=== PATIENT | female | born 1965 | race Caucasian/White ===

== ENCOUNTER 2016-10-01 10:14 | Emergency (ER) | payer OTHER ==
[2016-10-01 10:19] VITALS: TEMP 36.6; Ht 162.6 cm
[2016-10-01] MEDS ORDERED: ACETAMINOPHEN 500 MG TAB PO STA (10:43)
--- NOTE | 2016-10-01 11:25 | DIAGNOSTIC IMAGING REPORT ---
RIGHT KNEE 1 OR 2 VIEWS ROUTINE CLINICAL HISTORY: Right knee pain. Trauma. COMPARISON: None. DISCUSSION: There are advanced osteoarthritic changes within the right knee. There are dorsal patellar spurs. There are medial and lateral joint compartment spurs. No acute fractures are visualized. There is a probable trace joint effusion. IMPRESSION: Advanced osteoarthritic change. No acute fractures. Electronically signed by: Arthur Mancini M.D. 10/01/2016 11:24 AM Dictated Date/Time: 10/01/2016 11:23 AM
[2016-10-01] MEDS ORDERED: METF-384 PO (11:26)
[2016-10-01] MEDS ORDERED: LYR50 PO (11:26)
[2016-10-01] MEDS ORDERED: METO200T29 PO (11:26)
[2016-10-01] MEDS ORDERED: ALEN70TA4 PO (11:26)
[2016-10-01] MEDS ORDERED: CALC600T9 PO (11:26)
[2016-10-01] MEDS ORDERED: DAPA1TAB2 PO (11:26)
[2016-10-01] MEDS ORDERED: HYDR12.56 PO (11:26)
[2016-10-01] MEDS ORDERED: ENAL10TA88 PO (11:26)
--- NOTE | 2016-10-01 11:26 | DIAGNOSTIC IMAGING REPORT ---
RIGHT SHOULDER MIN 2 VIEWS ROUTINE CLINICAL HISTORY: Right shoulder pain status post trauma COMPARISON: None. DISCUSSION: No acute fractures are visualized. There are no dislocations. There are peritendinous calcifications consistent with calcific tendinitis. IMPRESSION: 1. No acute fractures or dislocations 2. Calcific tendinitis Electronically signed by: Arthur Mancini M.D. 10/01/2016 11:24 AM Dictated Date/Time: 10/01/2016 11:24 AM
[2016-10-01] MEDS ORDERED: TRAMADOL HCL 50 MG HOME PACK PO ONE (12:15)
[2016-10-01] MEDS ORDERED: TRAM-10 PO (12:15)
[2016-10-01 12:25] VITALS: BP 118/77; PULSE 68; O2SAT 96
--- NOTE | 2016-10-01 16:30 | EMERGENCY ROOM VISIT NOTE ---
History Report prepared by Eve: Meliza Mejia Under the Supervision of: Dr. Alcides Hernandez M.D. First contact with patient: 10:36 Chief Complaint: FALL Stated Complaint: FELL-HIT LT SIDE OF HEAD, RT SHOULDER/KNEE PAIN History of Present Illness The patient is a 51 year old female who presents to the Emergency Room for evaluation after suffering a fall just prior to arrival. Currently she is experiencing discomfort to a "lump" on left side of her head, as well as her right shoulder and right knee, and she rates her discomfort as a 9/10. At the time of onset, the patient was walking down a wheelchair ramp when she slipped on ice and fell backwards, landing on her back with her right leg bent underneath of her. During the fall, the patient hit the left side of her head and now has a painful "lump", but she denies losing consciousness or having a headache. She also has pain to her right shoulder and right knee, which worsens with attempts of movement. The patient denies injuring her neck, back, pelvis, or right sided extremities. Patient does note that she previously suffered an injury to her right shoulder in 2014, but she did not follow up with orthopedics at that time. Patient is not currently on any blood thinning medications. She has a history of diabetes and hypertension but has not yet taken her normal medications this morning. Source of History: patient Onset: travel pta Position: head, shoulder (right), knee (right) Symptom Intensity: 9/10 Timing: other (current) Modifying Factors (Worsening): movement Associated Symptoms: No LOC, No back pain, No neck pain Note: Patient denies injury to right sided extremities. Review of Systems See HPI for pertinent positives & negatives. A total of 10 systems reviewed and were otherwise negative. Past Medical & Surgical Medical Problems: (1) Diabetes (2) HTN (hypertension) Social History Smoking Status: Former Smoker Marital Status: single Occupation Status: employed Current/Historical Medications Scheduled Alendronate Sodium (Fosamax), 70 MG PO WK Calcium Carbonate-Vitamin D (Calcium + D), 1 TAB PO BID Dapagliflozin Propanediol (Farxiga), 10 MG PO DAILY Enalapril (Vasotec), 20 MG PO DAILY Hydrochlorothiazide (Hctz), 12.5 MG PO DAILY Metformin Hcl (Glucophage), 1,000 MG PO BID Metoprolol Succinate (Toprol Xl), 200 MG PO DAILY Pregabalin (Lyrica), 50 MG PO TID Scheduled PRN Tramadol (Ultram), 1-2 TABS PO Q6 PRN for Pain Allergies Coded Allergies: Amoxicillin (Verified Allergy, Intermediate, rash, 10/01/16) Levofloxacin (Verified Allergy, Intermediate, rash, 10/01/16) [place] (Unverified Allergy, Unknown, anaphylaxis, 10/01/16) Physical Exam Vital Signs Date Time Temp Pulse Resp B/P Pulse Ox O2 Delivery O2 Flow Rate FiO2 10/01/16 12:25 68 17 118/77 96 Room Air 10/01/16 10:19 36.6 68 17 134/77 95 Room Air Physical Exam GENERAL: Patient is a healthy-appearing well-nourished HEAD: Quarter sized contusion to the back of her head. EYES: Ocular movements intact pupils equal and react to light OROPHARYNX mucous membranes are moist no exudates present no erythema or edema present NECK: Supple no nuchal rigidity CHEST: Good equal expansion LUNGS: Clear and equal to auscultation CARDIAC: Normal S1 and S2 ABDOMEN: Soft nontender no guarding BACK: No CVA tenderness EXTREMITIES: Small knee effusion to the right knee. NVI to the right foot and right wrist. Good ROM of the right wrist and right elbow. Good ROM of the right hip and right ankle. NEURO: Patient is following commands is answering questions appropriately. Alert and oriented x3 Cranial Nerves 2-12 grossly intact Medical Decision & Procedures ER Provider Diagnostic Interpretation: X-ray results as stated below per interpretation by me and the radiologist: RIGHT SHOULDER MIN 2 VIEWS ROUTINE CLINICAL HISTORY: Right shoulder pain status post trauma COMPARISON: None. DISCUSSION: No acute fractures are visualized. There are no dislocations. There are peritendinous calcifications consistent with calcific tendinitis. IMPRESSION: 1. No acute fractures or dislocations 2. Calcific tendinitis Electronically signed by: Arthur Mancini M.D. 10/01/2016 11:24 AM Dictated Date/Time: 10/01/2016 11:24 AM RIGHT KNEE 1 OR 2 VIEWS ROUTINE CLINICAL HISTORY: Right knee pain. Trauma. COMPARISON: None. DISCUSSION: There are advanced osteoarthritic changes within the right knee. There are dorsal patellar spurs. There are medial and lateral joint compartment spurs. No acute fractures are visualized. There is a probable trace joint effusion. IMPRESSION: Advanced osteoarthritic change. No acute fractures. Electronically signed by: Arthur Mancini M.D. 10/01/2016 11:24 AM Dictated Date/Time: 10/01/2016 11:23 AM Medications Administered Medications (Trade) Dose Ordered Sig/Helen Route Start Time Stop Time Status Last Admin Dose Admin Acetaminophen (Tylenol Tab) 1,000 mg NOW STAT PO 10/01/16 10:43 10/01/16 10:45 DC 10/01/16 10:57 1,000 MG Tramadol HCl (Ultram Home Pack) 1 homepack UD ONCE PO 10/01/16 12:15 10/01/16 12:16 DC 10/01/16 12:22 1 HOMEPACK ED Course 1038: Past medical records reviewed. The patient was evaluated in room C3. A complete history and physical examination was performed. 1043: Tylenol 1,000 mg PO was ordered. 1200: Upon reevaluation, the patient was doing well and appeared to be resting more comfortably. I updated her on the results of her radiology reports. She will be given crutches and instructed on how to use them. 1215: Additional discharge instructions were discussed with the patient at this time. Tramadol HCl 1 homepack PO was ordered to control pain at home. She will follow up with orthopedics She verbalized her understanding and agreement with the treatment plan, and she is now ready for disposition. Medical Decision Differential diagnosis: Etiologies such as fracture, dislocation, neurovascular compromise, compartment syndrome, soft tissue injury, as well as others were entertained. This is a 51-year-old female that presents emergency department after a fall at home. The patient is complaining of right shoulder pain as well as right knee pain. Using shared medical decision making and fact that the patient is not having a headache noted she was consciousness and has all 12 cranial nerves intact relayed the decision that the patient can forego a CAT scan of her head. She was sent for x-rays of her knee as well as her shoulder. These did not show any acute fracture dislocation. The patient was given Tylenol in the emergency department. The patient initially refused pain medication however the time of discharge she was requesting pain meds so she was given Ultram. The patient was placed in a knee mobilizer pending with a follow-up and was placed on crutches. Patient and family were in agreement with the treatment plan. Impression Primary Impression: Right knee pain Additional Impressions: Shoulder pain, right Fall Scribe Attestation See HPI for pertinent positives & negatives. A total of 10 systems reviewed and were otherwise negative. Departure Information Dispostion Home / Self-Care Prescriptions Tramadol (Ultram) 50 Mg Tab 1-2 TABS PO Q6 Y for Pain, #14 TAB Prov: Alcides Hernandez MD 10/01/16 Referrals John Gill (PCP) Forms HOME CARE DOCUMENTATION FORM, IMPORTANT VISIT INFORMATION Patient Instructions My [facility] Additional Instructions Follow up with DR Lobo's office for continued pain Take 1000 mg of Tylenol every 6 hours You have been examined and treated today on an emergency basis only. This is not a substitute for, or an effort to provide, complete comprehensive medical care. It is impossible to recognize and treat all injuries or illnesses in a single emergency department visit. It is therefore important that you follow up closely with Dr Gill. Call as soon as possible for an appointment. Thank you for your time and consideration. I look forward to speaking with you again soon. Please don't hesitate to call us if you have any questions. Problem Qualifiers Primary Impression: Right knee pain Chronicity: acute Qualified Codes: M25.561 - Pain in right knee Additional Impressions: Shoulder pain, right Chronicity: acute Qualified Codes: M25.511 - Pain in right shoulder Fall Encounter type: initial encounter Qualified Codes: W19.XXXA - Unspecified fall, initial encounter
== END 2016-10-01 12:47 | disposition home or self-care (01) ==
LOC: C.EDB 10:19 → C.EDC 12:47
DX: M25.561 Pain in right knee (principal); M25.511 Pain in right shoulder; W00.0XXA Fall on same level due to ice and snow, initial encounter; E11.9 Type 2 diabetes mellitus without complications; I10 Essential (primary) hypertension; Z87.891 Personal history of nicotine dependence; Z88.1 Allergy status to other antibiotic agents; Z91.018 Allergy to other foods